=== PATIENT | male | born 1990 | race Caucasian/White ===

== ENCOUNTER 2016-08-13 02:13 | Emergency (ER) | payer BC, OTHER ==
[~2016-08-13] VITALS: Ht 195.6 cm; Wt 97.2 kg
[2016-08-13 02:14] VITALS: BP 153/108
[2016-08-13] MEDS ORDERED: DIPH,PERTUSS(ACELL),TET VAC/PF 0.5 ML IM-VACC ONE ×2 (03:00→03:10)
[2016-08-13] MEDS ORDERED: LIDOCAINE 1%-EPI 1:100K, 20ML SQ ONE (03:00)
[2016-08-13] MEDS ORDERED: LIDOCAINE 1%-EPI 1:100K, 50ML ONE (03:10)
[2016-08-13] MEDS ORDERED: ONDANSETRON ODT 4 MG ONE (03:40)
[2016-08-13] MEDS ORDERED: ONDANSETRON ODT 4 MG PO ONE (05:00)
== END 2016-08-13 05:14 | disposition home or self-care (01) ==
LOC: ED 05:05
DX: S51.811A Laceration without foreign body of right forearm, initial encounter (principal); X58.XXXA Exposure to other specified factors, initial encounter; Y93.89 Activity, other specified; Y99.8 Other external cause status; Y92.410 Unspecified street and highway as the place of occurrence of the external cause
CPT/HCPCS: 12034; 90471; 90715; 99284; J3490; Q0162